=== PATIENT | female | born 1950 | race Native Hawaiian/Other Pacific Islander ===

== ENCOUNTER 2016-06-24 16:04 | Outpatient (CLI) | payer BC ==
[~2016-06-24 16:04] MED LIST: CLON0.5T36 PO; LEXAPRO10 MG PO; ZANTAC 75 PO
== END 2016-06-24 19:26 | disposition home or self-care (01) ==
LOC: MAMMO 16:04
DX: Z12.31 Encounter for screening mammogram for malignant neoplasm of breast (principal)
CPT/HCPCS: G0202-TC

== ENCOUNTER 2016-07-10 14:00 | Outpatient (CLI) | payer BC | END 2016-07-10 15:30 | disposition home or self-care (01) | LOC: MAMMO 14:00 | DX: R92.0 Mammographic microcalcification found on diagnostic imaging of breast (principal) | CPT/HCPCS: G0206-TC ==

== ENCOUNTER 2017-01-14 08:13 | Outpatient (CLI) | payer BC | END 2017-01-14 10:00 | disposition home or self-care (01) | LOC: MAMMO 08:13 | DX: R92.8 Other abnormal and inconclusive findings on diagnostic imaging of breast (principal) ==

== ENCOUNTER 2018-04-07 08:08 | Outpatient (CLI) | payer OTHER | END 2018-04-07 19:21 | disposition home or self-care (01) | LOC: MAMMO 08:08 | DX: N64.4 Mastodynia (principal) ==